=== PATIENT | male | born 1980 | race African-American/Black ===

== ENCOUNTER 2022-09-04 14:06 | Inpatient (IN) | payer OTHER ==
[2022-09-04 15:41] VITALS: BMI 22.1
[2022-09-04] MEDS ORDERED: METHOCARBAMOL 500 MG TABLET PO PRN (18:52)
[2022-09-04] MEDS ORDERED: MAG HYDROX/AL HYDROX/SIMETH 30 ML UNIT-DOSE CUP PO PRN (18:52)
[2022-09-04] MEDS ORDERED: DICYCLOMINE HCL 10 MG CAPSULE PO PRN (18:52)
[2022-09-04] MEDS ORDERED: ONDANSETRON *ODT* 4 MG TABLET SL PRN (18:52)
[2022-09-04] MEDS ORDERED: MAGNESIUM HYDROX 2400MG/30ML ORAL SUSPENSION 30 ML CUP PO PRN (18:52)
[2022-09-04] MEDS ORDERED: NICOTINE 10 MG CARTRIDGE (INHALER) IH PRN (18:52)
[2022-09-04] MEDS ORDERED: POLYETHYLENE GLYCOL (HEALTHYLAX) 3350 17 GM PACKET PO PRN (18:52)
[2022-09-04] MEDS ORDERED: BISMUTH SUBSALICYLATE 524 MG/30 ML PO PRN (18:52)
[2022-09-04] MEDS ORDERED: IBUPROFEN 400 MG TABLET (FP) PO PRN (18:52)
[2022-09-04] MEDS ORDERED: LOPERAMIDE HCL 2 MG CAPSULE PO PRN (18:52)
[2022-09-04] MEDS ORDERED: hydrOXYzine PAMOATE 25 MG CAPSULE (FP) PO PRN (18:52)
[2022-09-04] MEDS ORDERED: BENZOCAINE/MENTHOL (CHLORASEPTIC ) LOZENGE MM PRN (18:52)
[2022-09-04] MEDS ORDERED: NALOXONE HCL (KLOXXADO) 8 MG SPRAY NS PRN (18:52)
[2022-09-04] MEDS ORDERED: ACETAMINOPHEN 325 MG TABLET (FP) PO PRN ×2 (18:52)
[2022-09-04] MEDS ORDERED: IBUPROFEN 600 MG TABLET (FP) PO PRN (18:52)
[2022-09-04] MEDS: MELATONIN 5 MG TABLETS PO SCH (22:25)
[2022-09-04] MEDS: THIAMINE HCL 100 MG TABLET (FP) PO SCH (22:25)
[2022-09-05 09:51] VITALS: RESP 18
[2022-09-05] MEDS: PRENATAL VITAMINS W/ FOLIC ACID TABLET (FP) PO SCH (10:35)
[2022-09-05 12:01] LABS: CHLORIDE 103 mmol/L (98-107); SODIUM 136 mmol/L (136-145)
[2022-09-05 12:04] LABS: CALCIUM 8.7 mg/dL (8.5-10.1); HEMATOCRIT 43.4 % (35.4-49); HEMOGLOBIN 14.2 GM/dL (11.7-16.9); MCH 29.1 pg (25.7-33.7); MCHC 32.6 g/dl (32.0-35.9); MEAN CELL VOLUME 89.1 fl (80-96); MEAN PLT VOLUME 8.6 fl (7.5-11.1); PLATELET COUNT 229 10^3/uL (134-434); RBC 4.88 M/mm3 (4.00-5.60); RDW 13.1 % (11.9-15.9)
[2022-09-05 12:05] LABS: ANION GAP 8 MMOL/L (8-16); BLOOD UREA NITROGEN 16.2 mg/dL (7-18); CO2 26 mmol/L (21-32)
[2022-09-05 12:07] LABS: ALBUMIN 3.2 g/dl (3.4-5.0)
[2022-09-05 12:08] LABS: SGPT/ALT 20 U/L (13-61)
[2022-09-05 12:09] LABS: TOT PROT 6.1 g/dl (6.4-8.2)
[2022-09-05 12:10] LABS: ALK PHOS 91 U/L (45-117); BILIRUBIN,TOTAL 0.4 mg/dL (0.2-1); CREATININE 1.4 mg/dL (0.55-1.3); SGOT/AST 21 U/L (15-37)
[2022-09-05 12:11] LABS: GLUCOSE,RANDOM 436 mg/dL (74-106)
[2022-09-05] MEDS: INSULIN SLIDING SCALE (NOVOLOG) 1 VIAL SQ SCH ×2 (16:32→22:41)
[2022-09-05] MEDS ORDERED: INSULIN (NOVOLOG) ASPART 100 UNITS/ML 10ML VIAL ONE (17:15)
[2022-09-05] MEDS: MELATONIN 5 MG TABLETS PO SCH (22:41)
[2022-09-05] MEDS: THIAMINE HCL 100 MG TABLET (FP) PO SCH (22:42)
[2022-09-06] MEDS: INSULIN SLIDING SCALE (NOVOLOG) 1 VIAL SQ SCH ×2 (06:32→11:32)
[2022-09-06] MEDS ORDERED: INSULIN (NOVOLOG) ASPART 100 UNITS/ML 10ML VIAL ONE (07:32)
[2022-09-06 09:41] VITALS: BP 133/77; PULSE 92; TEMP 97.7
[2022-09-06] MEDS: PRENATAL VITAMINS W/ FOLIC ACID TABLET (FP) PO SCH (10:31)
== END 2022-09-06 11:15 | disposition home or self-care (01) | DRG 774 ==
LOC: YASAS 14:06 → UNDOADMIN 19:58 → Y6N 19:58
PROVIDERS: ADMIT Allergy & Immunology; ATTEND Family Medicine
PROC: HZ2ZZZZ Detoxification Services for Substance Abuse Treatment (ICD-10-PCS; principal; 2022-09-04)
DX: F10.230 Alcohol dependence with withdrawal, uncomplicated (principal); F14.20 Cocaine dependence, uncomplicated; F12.20 Cannabis dependence, uncomplicated; F17.210 Nicotine dependence, cigarettes, uncomplicated; F19.282 Other psychoactive substance dependence with psychoactive substance-induced sleep disorder; F31.9 Bipolar disorder, unspecified; E78.5 Hyperlipidemia, unspecified; I10 Essential (primary) hypertension; K21.9 Gastro-esophageal reflux disease without esophagitis; Z88.0 Allergy status to penicillin; Z59.00 Homelessness unspecified
CPT/HCPCS: 36415; 80053; 82962; 85027; 86780; C9803-CS; U0003; U0005